=== PATIENT | female | born 1990 | race American Indian/Alaskan Native ===

== ENCOUNTER 2018-08-05 15:43 | Outpatient (CLI) | payer OTHER | END 2018-08-05 15:50 | disposition home or self-care (01) | LOC: RAD 15:43 | DX: R05 Cough (principal) ==

== ENCOUNTER 2018-08-05 17:14 | Outpatient (CLI) | payer OTHER | END 2018-08-05 17:24 | disposition home or self-care (01) | LOC: LAB 17:14 | DX: J11.1 Influenza due to unidentified influenza virus with other respiratory manifestations (principal); J06.9 Acute upper respiratory infection, unspecified ==